=== PATIENT | female | born 1950 | race Caucasian/White ===

== ENCOUNTER 2016-08-07 14:31 | Emergency (ER) | payer MEDICARE, OTHER ==
[~2016-08-07 14:31] MED LIST: AZASAN75 MG OR; BENTYL10 PO; CIMZIA SC; ENDOCORT; ENDOCORT PO; KDUR20 PO; KLOR-CON M2020 MEQ PO; PENTASA500 MG PO; PRILO PO
== END 2016-08-07 16:55 | disposition home or self-care (01) ==
LOC: ER 14:31
DX: S39.012A Strain of muscle, fascia and tendon of lower back, initial encounter (principal); I10 Essential (primary) hypertension; K21.9 Gastro-esophageal reflux disease without esophagitis; Z88.0 Allergy status to penicillin; Z88.1 Allergy status to other antibiotic agents; Z79.899 Other long term (current) drug therapy; X58.XXXA Exposure to other specified factors, initial encounter
CPT/HCPCS: 72100; 93005; 96372; 99284; J1170